=== PATIENT | female | born 1990 | race Caucasian/White ===

== ENCOUNTER 2018-03-16 10:38 | Emergency (ER) | payer OTHER | END 2018-03-16 13:27 | disposition home or self-care (01) | LOC: M ED 10:38 | DX: M94.0 Chondrocostal junction syndrome [Tietze] (principal) | CPT/HCPCS: 71046 ==

== ENCOUNTER 2018-06-05 11:00 | Emergency (ER) | payer OTHER ==
[~2018-06-05] VITALS: Ht 144.8 cm; Wt 62.7 kg
[~2018-06-05 11:00] MED LIST: NAPR-885 PO
[2018-06-05 11:01] VITALS: BP 130/60
[2018-06-05] MEDS ORDERED: NS 1,000 ML IV ONE (11:15)
[2018-06-05 11:38] LABS: BASO % 0.3 % (0.0-1.0); EOS % 0.3 % (0.0-3.0); HEMATOCRIT 37.3 % (36.0-47.0); HEMOGLOBIN 12.1 g/dl (12.0-15.5); LYMPH # 2.1 10^3/uL (1.5-6.5); LYMPH % 32.7 % (24.0-44.0); MEAN CORPUSCULAR HEMOGLOBIN 28.4 pg (27.0-33.0); MEAN CORPUSCULAR HGB CONC 32.4 g/dl (32.0-36.5); MEAN CORPUSCULAR VOLUME 87.6 fl (80.0-96.0); MONO # 0.7 10^3/uL (0.0-0.8); MONO % 10.3 % (0.0-5.0); NEUTROPHILS # 3.6 10^3/uL (1.8-7.7); NEUTROPHILS % 56.2 % (36.0-66.0); PLATELET COUNT, AUTOMATED 284 10^3/uL (150-450); RED BLOOD COUNT 4.26 10^6/uL (4.00-5.40); WHITE BLOOD COUNT 6.4 10^3/uL (4.0-10.0)
[2018-06-05 12:31] LABS: ALBUMIN 3.8 GM/DL (3.2-5.2); ALT/SGPT 17 U/L (12-78); AMYLASE 86 U/L (25-115); BILIRUBIN,DIRECT < 0.1 MG/DL (0.0-0.2); BILIRUBIN,TOTAL 0.2 MG/DL (0.2-1.0); BLOOD UREA NITROGEN 7 MG/DL (7-18); CARBON DIOXIDE LEVEL 22 MEQ/L (21-32); CHLORIDE LEVEL 108 MEQ/L (98-107); CK-MB VALUE MASS < 1.0 NG/ML (<3.6); CPK CREATINE PHOSPHOKINASE 88 U/L (26-192); CREATININE FOR GFR 0.84 MG/DL (0.55-1.30); GLOMERULAR FILTRATION RATE > 60.0 (>60); GLUCOSE, FASTING 105 MG/DL (70-100); HCG, SERUM QUANTITATIVE 11890 MIU/ML; LIPASE 156 U/L (73-393); MB/CK RELATIVE INDEX 1.14 (< OR =4); POTASSIUM SERUM 3.9 MEQ/L (3.5-5.1); SODIUM LEVEL 139 MEQ/L (136-145); TOTAL PROTEIN 7.2 GM/DL (6.4-8.2); TROPONIN I < 0.02 NG/ML (< 0.10)
--- NOTE | 2018-06-05 12:40 | REP ---
Clinical: Acute epigastric abdominal pain. Technique: Merlos scale ultrasound using curved array transducer. Findings: The liver and pancreas are normal in contour, size, and echogenicity without focal hepatic or pancreatic lesions identified. The gallbladder is normal without gallstones, wall thickening or pericholecystic fluid. No biliary ductal dilatation is appreciated, and the common bile duct measures 3.9 mm diameter. The right kidney is normal in reniform shape without hydronephrosis and measures 9.2 x 4.1 x 4.5 cm. No ascites. Visualized portions of the abdominal aorta normal. Impression: Normal right upper quadrant and gallbladder abdominal ultrasound. Electronically Signed by Brandon Arredondo MD 06/05/2018 12:31 P
--- NOTE | 2018-06-05 12:42 | REP ---
Clinical: Dating and viability. Technique: Transabdominal and transvaginal first trimester obstetrical ultrasound with color Doppler evaluation. Findings: Anteverted uterus measures 8.2 x 4.9 x 4.9 cm. A gestational sac with yolk sac is identified without evidence for pole. Mean sac diameter of 9.2 mm corresponds to 5 weeks 5 days gestational age. Bilateral maternal ovaries are relatively normal and without evidence for torsion. Right ovary measures 3.1 x 2.9 x 2.5 cm and includes 2.0 cm corpus luteal cyst. Left ovary measures 2.6 x 1.7 x 3.0 cm. Right RI =0.42; Left RI =0.71. Impression: Gestational sac with yolk sac but no pole identified. Differential diagnosis includes spontaneous and early intrauterine . Correlation with serial HCG levels recommended. Electronically Signed by Brandon Arredondo MD 06/05/2018 12:34 P
--- NOTE | 2018-06-06 09:18 | ECGEPIP ---
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
== END 2018-06-05 13:16 | disposition home or self-care (01) ==
LOC: M ED 11:00
DX: Z32.01 Encounter for pregnancy test, result positive (principal)

== ENCOUNTER 2018-06-28 13:46 | Emergency (ER) | payer OTHER ==
[~2018-06-28] VITALS: Ht 144.8 cm; Wt 58.2 kg
[2018-06-28] MEDS ORDERED: SUCRALFATE 1 GM TAB PO ONE (14:30)
[2018-06-28] MEDS ORDERED: NS 1,000 ML IV ONE (14:30)
[2018-06-28] MEDS ORDERED: METOCLOPRAMIDE INJ 10MG/2ML VIAL (J2765) IV ONE (14:30)
[2018-06-28] MEDS ORDERED: MAALOX 30 ML SUSP *UDC PO ONE (14:30)
[2018-06-28 14:39] LABS: BASO % 0.4 % (0.0-1.0); EOS % 0.4 % (0.0-3.0); HEMATOCRIT 36.4 % (36.0-47.0); HEMOGLOBIN 11.9 g/dl (12.0-15.5); LYMPH # 2.5 10^3/uL (1.5-6.5); LYMPH % 36.3 % (24.0-44.0); MEAN CORPUSCULAR HEMOGLOBIN 28.1 pg (27.0-33.0); MEAN CORPUSCULAR HGB CONC 32.7 g/dl (32.0-36.5); MEAN CORPUSCULAR VOLUME 85.8 fl (80.0-96.0); MONO # 0.9 10^3/uL (0.0-0.8); MONO % 12.3 % (0.0-5.0); NEUTROPHILS # 3.5 10^3/uL (1.8-7.7); NEUTROPHILS % 50.3 % (36.0-66.0); PLATELET COUNT, AUTOMATED 264 10^3/uL (150-450); RED BLOOD COUNT 4.24 10^6/uL (4.00-5.40); WHITE BLOOD COUNT 6.9 10^3/uL (4.0-10.0)
[2018-06-28 15:12] LABS: ALBUMIN 3.9 GM/DL (3.2-5.2); ALT/SGPT 24 U/L (12-78); BILIRUBIN,DIRECT < 0.1 MG/DL (0.0-0.2); BILIRUBIN,TOTAL 0.4 MG/DL (0.2-1.0); BLOOD UREA NITROGEN 4 MG/DL (7-18); CARBON DIOXIDE LEVEL 23 MEQ/L (21-32); CHLORIDE LEVEL 104 MEQ/L (98-107); CK-MB VALUE MASS < 1.0 NG/ML (<3.6); CPK CREATINE PHOSPHOKINASE 124 U/L (26-192); CREATININE FOR GFR 0.59 MG/DL (0.55-1.30); GLOMERULAR FILTRATION RATE > 60.0 (>60); GLUCOSE, FASTING 82 MG/DL (70-100); HCG, SERUM QUANTITATIVE 101935 MIU/ML; LIPASE 163 U/L (73-393); MB/CK RELATIVE INDEX 0.81 (< OR =4); SODIUM LEVEL 136 MEQ/L (136-145); TOTAL PROTEIN 7.8 GM/DL (6.4-8.2); TROPONIN I < 0.02 NG/ML (< 0.10)
[2018-06-28 15:44] LABS: ABG BASE EXCESS -4.6 (-2.0-2.0); ABG HCO3 18.9 MEQ/L (22.0-26.0); ABG O2 SATURATION 99.1 % (95.0-99.0); ABG PARTIAL PRESSURE CO2 29.4 mmHg (35.0-45.0); ABG PARTIAL PRESSURE O2 143.9 mmHg (75.0-100.0); ABG STANDARD HCO3 20.7 MEQ/L (22.0-26.0); ABG TOTAL CO2 19.8 MEQ/L (22.0-29.0); ABG pH (ARTERIAL) 7.425 UNITS (7.350-7.450)
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
[2018-06-28] MEDS ORDERED: REGL10TA6 PO (16:42)
[2018-06-28 16:52] VITALS: BP 118/59
--- NOTE | 2018-06-29 07:23 | ECGEPIP ---
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
== END 2018-06-28 16:57 | disposition home or self-care (01) ==
LOC: M ED 13:46
DX: O99.411 Diseases of the circulatory system complicating pregnancy, first trimester (principal); R07.89 Other chest pain; O36.8991 Maternal care for other specified fetal problems, unspecified trimester, fetus 1; O21.9 Vomiting of pregnancy, unspecified; Z3A.09 9 weeks gestation of pregnancy
CPT/HCPCS: 76801; 80048; 80076; 82550; 82553; 82803; 83690; 84484; 84702; 85025; 86850; 86900; 86901; 93005; 93041; 93976; 96374; 99285; J2765

== ENCOUNTER → 2018-08-02 | Outpatient (CLI) | payer OTHER ==
[~2018-08-02] MED LIST changes: +REGL10TA6 PO
[2018-08-02 14:44] LABS: BASO % 0.1 % (0.0-1.0); EOS % 0.3 % (0.0-3.0); HEMATOCRIT 34.3 % (36.0-47.0); HEMOGLOBIN 11.1 g/dl (12.0-15.5); LYMPH # 1.9 10^3/uL (1.5-6.5); LYMPH % 27.1 % (24.0-44.0); MEAN CORPUSCULAR HEMOGLOBIN 27.9 pg (27.0-33.0); MEAN CORPUSCULAR HGB CONC 32.4 g/dl (32.0-36.5); MEAN CORPUSCULAR VOLUME 86.2 fl (80.0-96.0); MONO # 0.7 10^3/uL (0.0-0.8); MONO % 9.5 % (0.0-5.0); NEUTROPHILS # 4.4 10^3/uL (1.8-7.7); NEUTROPHILS % 62.7 % (36.0-66.0); PLATELET COUNT, AUTOMATED 240 10^3/uL (150-450); RED BLOOD COUNT 3.98 10^6/uL (4.00-5.40); WHITE BLOOD COUNT 7.1 10^3/uL (4.0-10.0)
[2018-08-03 11:46] LABS: CHLAMYDIA DNA AMPLIFICATION NEGATIVE (NEGATIVE); GC DNA AMPLIFICATION NEGATIVE (NEGATIVE)
[2018-08-03 12:55] LABS: HIV 1&2 SCREEN CENTAUR NEGATIVE (NEGATIVE); RUBELLA IgG QUALITATIVE IMMUNE (IMMUNE)
[2018-08-04 11:10] LABS: HEPATITIS C VIRUS ABY INDEX 0.1 INDEX (<0.8)
== END ==
LOC: M SMT 11:24
PROVIDERS: ATTEND Advanced Practice Midwife
DX: Z34.80 Encounter for supervision of other normal pregnancy, unspecified trimester (principal); Z3A.10 10 weeks gestation of pregnancy

== ENCOUNTER → 2018-08-30 | Outpatient (CLI) | payer OTHER ==
--- NOTE | 2018-08-30 13:54 | REP ---
OB ULTRASOUND: Real-time sonographic evaluation of the gravid uterus is performed. There is a single living intrauterine gestation. The estimated gestational age is 18 weeks, EDC 01/31/2019. Today's measurements indicate appropriate growth. Biometry and Growth: BPD 41 mm= 18 weeks 3 day, 61st percentile HC 151 mm = 18 weeks 1 day, 56th percentile AC 124 mm = 18 weeks 0 days, 51st percentile FL 28 mm = 18 weeks 4 days, 64th percentile HC/AC ratio 1.22 within normal range. Estimated weight 232 grams, 58th percentile. SEEN/GROSSLY UNREMARKABLE Lateral ventricles Yes Posterior fossa Yes Upper lip Yes Four-chamber heart Yes LVOT Yes RVOT Yes Stomach Yes Cord insertion Yes Three vessel cord Yes Kidneys Yes Bladder Yes Spine Yes Cervical length: Closed and measures 4.2 cm in length. heart rate: 144 beats per minute. position: Variable. Placenta: Anterior and grade 0 with no previa or abruption. Amniotic fluid: Within normal limits. Electronically Signed by Juan Merlos MD 08/30/2018 05:40 P
== END ==
LOC: M RAD 09:46
PROVIDERS: ATTEND Advanced Practice Midwife
DX: O26.892 Other specified pregnancy related conditions, second trimester (principal); Z3A.18 18 weeks gestation of pregnancy

== ENCOUNTER → 2018-08-30 | Outpatient (CLI) | payer OTHER | LOC: M SMT 10:56 | PROVIDERS: ATTEND Advanced Practice Midwife | DX: Z13.79 Encounter for other screening for genetic and chromosomal anomalies (principal) ==

== ENCOUNTER → 2018-10-25 | Outpatient (REF) | payer OTHER | LOC: M LAB REF 12:38 | PROVIDERS: ATTEND Obstetrics & Gynecology | DX: Z34.82 Encounter for supervision of other normal pregnancy, second trimester (principal); Z36.89 Encounter for other specified antenatal screening ==

== ENCOUNTER → 2018-11-10 | Outpatient (CLI) | payer OTHER ==
[2018-11-10 13:25] LABS: HEMATOCRIT 32.5 % (36.0-47.0); HEMOGLOBIN 10.4 g/dl (12.0-15.5); MEAN CORPUSCULAR HEMOGLOBIN 29.1 pg (27.0-33.0); MEAN CORPUSCULAR VOLUME 90.8 fl (80.0-96.0); PLATELET COUNT, AUTOMATED 176 10^3/uL (150-450); RED BLOOD COUNT 3.58 10^6/uL (4.00-5.40); WHITE BLOOD COUNT 7.4 10^3/uL (4.0-10.0)
== END ==
LOC: M SMT 10:42
PROVIDERS: ATTEND Obstetrics & Gynecology
DX: Z34.82 Encounter for supervision of other normal pregnancy, second trimester (principal); Z3A.00 Weeks of gestation of pregnancy not specified

== ENCOUNTER → 2018-11-24 | Outpatient (REF) | payer OTHER | LOC: M LAB REF 12:59 | PROVIDERS: ATTEND Advanced Practice Midwife | DX: Z34.83 Encounter for supervision of other normal pregnancy, third trimester (principal); Z3A.00 Weeks of gestation of pregnancy not specified ==

== ENCOUNTER → 2019-01-06 | Outpatient (CLI) | payer OTHER ==
[~2019-01-06] MED LIST changes: +ACET-683 PO; +IBUP80TA PO; +PRENTAB9 PO
== END ==
LOC: M SMT 15:27
PROVIDERS: ATTEND Advanced Practice Midwife
DX: Z34.83 Encounter for supervision of other normal pregnancy, third trimester (principal)

== ENCOUNTER 2019-01-31 08:46 | Inpatient (IN) | payer OTHER ==
[~2019-01-31] VITALS: Ht 139.7 cm; Wt 63.7 kg
[2019-01-31] VITALS (18 sets, daily range): BP systolic 97–172; BP diastolic 56–84
[~2019-01-31 08:46] MED LIST changes: -ACET-683 PO; -IBUP80TA PO; -PRENTAB9 PO
[2019-01-31] MEDS ORDERED: PRENTAB9 PO (09:36)
[2019-01-31] MEDS ORDERED: LR 1,000 ML IV SCH (09:52)
[2019-01-31] MEDS ORDERED: PENICILLIN G POTASSIUM IV 5 MU in D5W MINI-BAG PLUS 100 ML IV STA (09:52)
[2019-01-31] MEDS ORDERED: OXYTOCIN DRIP 30 UNITS in APPROPRIATE DILUENT 1 EA IV SCH ×2 (10:00→17:08)
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
[2019-01-31 11:53] LABS: HEMATOCRIT 33.7 % (36.0-47.0); HEMOGLOBIN 10.9 g/dl (12.0-15.5); MEAN CORPUSCULAR HEMOGLOBIN 29.8 pg (27.0-33.0); MEAN CORPUSCULAR HGB CONC 32.3 g/dl (32.0-36.5); MEAN CORPUSCULAR VOLUME 92.1 fl (80.0-96.0); PLATELET COUNT, AUTOMATED 149 10^3/uL (150-450); RED BLOOD COUNT 3.66 10^6/uL (4.00-5.40); WHITE BLOOD COUNT 7.5 10^3/uL (4.0-10.0)
[2019-01-31] MEDS ORDERED: PENICILLIN G POTASSIUM IV 2.5 MU in APPROPRIATE DILUENT 1 EA IV SCH (15:00)
[2019-01-31] MEDS ORDERED: METHYLERGONOVINE MALEATE 0.2 MG TAB PO PRN (17:15)
[2019-01-31] MEDS ORDERED: IBUPROFEN 600 MG TAB PO PRN (17:15)
[2019-01-31] MEDS ORDERED: DIBUCAINE 1% OINTMENT 30GM TOP PRN (17:15)
[2019-01-31] MEDS ORDERED: MEASLES,MUMPS,RUBELLA VACCINE INJ (MMR-II) (90707) SC SCH (17:15)
[2019-01-31] MEDS ORDERED: DOCUSATE SODIUM 100 MG CAP PO PRN (17:15)
[2019-01-31] MEDS ORDERED: ANUSOL HC CREAM 30GM TOP PRN (17:15)
[2019-01-31] MEDS ORDERED: RHOGAM 300 MCG (1500 IU) INJ (J2790) IM SCH (17:15)
[2019-01-31] MEDS: ACETAMINOPHEN 500 MG TAB PO PRN (17:41)
[2019-01-31] MEDS: IBUPROFEN 800 MG TAB PO PRN (17:42)
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
[2019-02-01 06:34] VITALS: BP 106/75
--- NOTE | 2019-02-01 06:48 | IPNPDOC ---
Progress Note Date of Service: Feb 01, 2019 Day#: 1 Progress Note SUBJECT: She has been ambulating, voiding spontaneously without issue and tolerating regular diet. Breast feeding without issue. OBJECTIVE: VITAL SIGNS: Within normal limits, afebrile. Alert and oriented times three. Breath sounds clear to auscultation. Heart rate: Regular rate and rhythm, no murmurs, rubs or gallops. Abdomen: Fundus firm at U. Soft, NTTP. Minimal lochia. ASSESSMENT Day 1 PLAN: 1. Continue supportive nursing care. Anticipate discharge tomorrow. VS, I&O, 24H, Fishbone Vital Signs/I&O Vital Signs Date Time Temp Pulse Resp B/P (MAP) Pulse Ox O2 Delivery O2 Flow Rate FiO2 02/01/19 06:34 97.5 74 18 106/75 (85) 01/31/19 09:10 100 I&O- Last 24 Hours up to 6 AM 02/01/19 06:00 Intake Total 1935.0 ml Output Total 1300 ml Balance 635.0 ml Laboratory Data 24H LABS Laboratory Tests 2 01/31/19 10:13: Serology Scanned Report Hepatitis B Testing 01/31/19 11:38: Nucleated Red Blood Cells % (auto) 0.0, Syphilis Serology NONREACTIVE CBC/BMP Laboratory Tests 01/31/19 11:38 Red Blood Count 3.66 L, Mean Corpuscular Volume 92.1, Mean Corpuscular Hemoglobin 29.8, Mean Corpuscular Hemoglobin Concent 32.3, Red Cell Distribution Width 14.2 ETELVINA CANTU CNM Feb 01, 2019 06:48
[2019-02-01] MEDS: IBUPROFEN 800 MG TAB PO PRN ×2 (06:54→14:14)
[2019-02-01] MEDS: PRENATAL VITAMINS CHEWABLE TABLET PO SCH (08:26)
[2019-02-01] MEDS: ACETAMINOPHEN TAB 650MG DOSE (2X325MG) PO PRN (16:49)
[2019-02-01 18:00] VITALS: BP 106/55
[2019-02-01] MEDS: ACETAMINOPHEN 500 MG TAB PO PRN (21:56)
[2019-02-02 06:39] VITALS: BP 91/50
[2019-02-02] MEDS: PRENATAL VITAMINS CHEWABLE TABLET PO SCH (08:24)
[2019-02-02] MEDS: ACETAMINOPHEN TAB 650MG DOSE (2X325MG) PO PRN (08:24)
[2019-02-02] MEDS ORDERED: ACET-683 PO (08:44)
[2019-02-02] MEDS ORDERED: IBUP80TA PO (08:44)
== END 2019-02-02 16:25 | disposition home or self-care (01) | DRG 807 ==
LOC: M LDO 08:46 → M LDI 09:54 → M OBS 18:30
PROVIDERS: ADMIT Advanced Practice Midwife; ATTEND Advanced Practice Midwife
PROC: 10E0XZZ Delivery of Products of Conception, External Approach (ICD-10-PCS; principal; 2019-01-31)
PROC: 10907ZC Drainage of Amniotic Fluid, Therapeutic from Products of Conception, Via Natural or Artificial Opening (ICD-10-PCS; 2019-01-31)
DX: O99.824 Streptococcus B carrier state complicating childbirth (principal); Z37.0 Single live birth; Z3A.40 40 weeks gestation of pregnancy; O69.1XX0 Labor and delivery complicated by cord around neck, with compression, not applicable or unspecified; O69.2XX0 Labor and delivery complicated by other cord entanglement, with compression, not applicable or unspecified

== ENCOUNTER 2019-03-13 09:36 | Emergency (ER) | payer OTHER ==
[~2019-03-13] VITALS: Ht 144.8 cm; Wt 58.1 kg
[~2019-03-13 09:36] MED LIST changes: +ACET-683 PO; +IBUP80TA PO; +PRENTAB9 PO
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
[2019-03-13] MEDS ORDERED: ACETAMINOPHEN 650MG ER TAB (TYLENOL ARTHRITIS) PO PRN (10:45)
[2019-03-13] MEDS ORDERED: KETOROLAC 60 MG/2 ML VIAL (J1885) IM ONE (11:00)
[2019-03-13 12:12] VITALS: BP 111/73
== END 2019-03-13 12:14 | disposition home or self-care (01) ==
LOC: M ED 09:36
DX: S39.012A Strain of muscle, fascia and tendon of lower back, initial encounter (principal); X58.XXXA Exposure to other specified factors, initial encounter; Y92.9 Unspecified place or not applicable; Y93.9 Activity, unspecified; Y99.9 Unspecified external cause status; Z79.899 Other long term (current) drug therapy
CPT/HCPCS: 72040; 72072; 72110; 99283; J1885

== ENCOUNTER → 2019-03-18 | Outpatient (CLI) | payer OTHER ==
--- NOTE | 2019-03-18 11:28 | REP ---
Left shoulder three views: Mineralization and joint spaces are normal. There is no fracture or dislocation. There are no calcifications or foreign bodies. No scapular fracture is identified. If symptoms persist or worsen, consider CT. Electronically Signed by Juan Flores MD 03/18/2019 11:19 A
== END ==
LOC: M RAD 09:38
PROVIDERS: ATTEND Internal Medicine
DX: M25.512 Pain in left shoulder (principal)

== ENCOUNTER → 2019-05-18 | Outpatient (REF) | payer OTHER | LOC: M SFHCWAGY 18:17 | PROVIDERS: ATTEND Advanced Practice Midwife | DX: Z12.4 Encounter for screening for malignant neoplasm of cervix (principal) ==